=== PATIENT | male | born 1985 | race African-American/Black ===

== ENCOUNTER 2019-05-05 12:55 | Emergency (ER) | payer OTHER, SELFPAY ==
[2019-05-05] MEDS ORDERED: Ibuprofen 800 MG TAB ONE (13:17)
== END 2019-05-05 14:09 | disposition home or self-care (01) ==
LOC: NAV ERS 12:55
DX: J11.1 Influenza due to unidentified influenza virus with other respiratory manifestations (principal); F17.210 Nicotine dependence, cigarettes, uncomplicated
CPT/HCPCS: 87081; 87430; 87804; 99283